=== PATIENT | female | born 1980 | race Caucasian/White ===

== ENCOUNTER → 2019-01-25 | Outpatient (CLI) | payer OTHER, SELFPAY ==
[2019-01-25 15:36] LABS: Absolute Lymphocyte Count 1.43 X10^3/uL (0.83-4.51); Absolute Neutrophil Count 3.2 X10^3/uL (2.0-7.7); Basophil# 0.04 X10^3/uL; Basophil% 0.8 % (0-1); Eosinophil# 0.09 X10^3/uL; Eosinophils% 1.7 % (0-5); Hemoglobin 14.9 g/dL (12.0-15.0); Lymphocyte # 1.43 X10^3/ul (4.0); Lymphocyte % 27.2 % (19-41); Mean Corp Hgb Conc 34.7 g/dL (32-36); Mean Corpuscular Hgb 31.3 pg (27.0-32.0); Mean Corpuscular Volume 90.3 fL (81-99); Mean Platelet Vol. 10.9 fl (6.2-12.0); Monocyte# 0.51 X10^3/uL; Monocyte% 9.7 % (0-10); NRBC Flagged by Analyzer 0 % (0-5); Neutrophil # 3.17 X10^3/uL (2.7-7.7); Neutrophil % 60.2 % (47-70); Platelet Count 225 K/mm3 (150-450); RBC Distribution Width CV 12.9 % (11.6-14.6); RBC Distribution Width SD 42.3 fl (35.1-43.9); Red Blood Count 4.76 M/mm3 (4.2-5.4); White Blood Count 5.3 K/mm3 (4.4-11.0)
[2019-01-25 15:54] LABS: Erythrocyte Sedimentation Rate 19 mm/hr (0-20)
[2019-01-25 16:10] LABS: Vitamin B12 319 pg/mL (211-911); Vitamin D,25 Hydroxy 9.2 ng/mL (29.95-100.01)
[2019-01-25 16:14] LABS: ALB/GLOB Ratio 0.9 RATIO (0.9-2.4); AST(SGOT) 16 U/L (15-37); Alanine Aminotransfer ALT/SGPT 28 U/L (13-56); Albumin, Serum 3.7 g/dL (3.2-5.0); Alkaline Phosphatase 56 U/L (45-117); Anion Gap 10 (5-15); BUN 14 mg/dL (7-18); BUN/Creat Ratio 15.5 RATIO (10-20); Calcium,Total 9.1 mg/dL (8.5-10.1); Chloride 107 mmol/L (98-107); Cholesterol 201 mg/dL (200); EST Glomerular Filtration Rate 74 mL/min (>60); Est Glom Filt Rate - Afr Amer 90 mL/min (>60); Free T3 3.1 pg/mL (2.18-3.98); Globulin 3.9 g/dL (2.2-4.2); Glucose 83 mg/dL (74-106); High Density Lipoprotein 108 mg/dL; Iron 114 ug/dL (50-170); Potassium 3.9 mmol/L (3.5-5.1); Protein, Total 7.6 g/dL (6.4-8.2); Sodium Level 140 mmol/L (136-145); T3 Uptake 34 % (30-39); T4 Free Direct 0.93 ng/dL (0.76-1.46); Thyroid Stim Hormone (TSH) 1.65 uIU/mL (0.358-3.74); Triglycerides 81 mg/dL; Very Low Density Lipoprotein 16 mg/dL (5-40)
[2019-01-30 13:56] LABS: Anti-Thyroglobulin AB < 1.0 IU/mL (0.0-0.9); Thyroglobulin, Serum Qt. 18.6 ng/mL (1.5-38.5)
== END | disposition home or self-care (01) ==
PROVIDERS: Family Provider Family Medicine; PCP Family Medicine; Referring Provider Family Medicine; Visit Provider Family Medicine
DX: R53.83 Other fatigue (principal); Z13.220 Encounter for screening for lipoid disorders
CPT/HCPCS: 36415; 80053; 80061; 82306; 82607; 83540; 84432; 84439; 84443; 84479; 84481; 85025; 85652; 86800

== ENCOUNTER → 2019-02-06 | Outpatient (CLI) | payer OTHER, SELFPAY ==
--- NOTE | 2019-02-05 | LES_PTH ---
PATIENT: ANNA GOMEZ LOC: [facility] U#:[id number] AGE/SX: 38/F ROOM: RE02/06/[address]: Dr. Jonathan Valente MD : 1980 BED: DIS: 02/06/2019 SPEC #: [id number] RECD: 02/05/19 18:02 STATUS: NISHANT DAVIS #: [id number] SURAJ: 02/05/19 00:[address]: Jonathan Valente DEPT: SURGICAL PATHOLOGY RECD BY: Cecilio Minor Tissues: Skin of neck, NOS Procedures: Surgery Specimen Level IV HEADER OPERATION: Left neck shave biopsy PRE-OP DIAGNOSIS: Atypical nevus TISSUE SUBMITTED: Left neck shave biopsy MICROSCOPIC DIAGNOSIS Left neck lesion, shave biopsy: Polypoid compound nevus with predominantly intradermal component. See comment. MAIKEL:gilamr 02/07/19 COMMENT The lesion is present at the deep margin of the specimen. Clinical correlation and appropriate follow up are necessary. MICROSCOPIC DESCRIPTION Slides are reviewed. GROSS DESCRIPTION Received in fixative is one container labeled with the patient's name and designated left neck. The specimen consists of a piece of pratt-brown skin measuring 0.7 x 0.7 x 0.4 cm. The specimen is inked and submitted entirely in one cassette. It will be bisected at the time of embedding. / SJ:rg 02/06/19 TC:1 CPT: 46005
== END | disposition home or self-care (01) ==
LOC: LABSPEC 09:11
PROVIDERS: Family Provider Family Medicine; PCP Family Medicine; Referring Provider Family Medicine; Visit Provider Family Medicine
DX: D22.4 Melanocytic nevi of scalp and neck (principal)
CPT/HCPCS: 88305

== ENCOUNTER → 2019-03-16 | Outpatient (CLI) | payer OTHER, SELFPAY ==
[2019-03-20 11:03] LABS: V-Zoster IgG (Immunity) 733 index (Immune >165); V-Zoster Virus Acute IgM < 0.91 index (0.00-0.90)
== END | disposition home or self-care (01) ==
LOC: MFPLAB 12:01
PROVIDERS: Family Provider Family Medicine; PCP Family Medicine; Referring Provider Family Medicine; Visit Provider Family Medicine
DX: R21 Rash and other nonspecific skin eruption (principal)
CPT/HCPCS: 36415; 86787

== ENCOUNTER 2019-07-07 13:33 | Emergency (ER) | payer OTHER, SELFPAY ==
[2019-07-07 13:34] VITALS: BP 160/129; PULSE 103; RESP 20; TEMP 36.4; O2SAT 98; BMI 37.9
--- NOTE | 2019-07-07 14:06 | EKG12_ITS ---
Test Reason : HTN Blood Pressure : / mmHG Vent. Rate : 091 BPM Atrial Rate : 091 BPM P-R Int : 164 ms QRS Dur : 072 ms QT Int : 348 ms P-R-T Axes : 047 002 036 degrees QTc Int : 428 ms Normal sinus rhythm Anteroseptal infarct , age undetermined Abnormal ECG Confirmed by JHON JAIN, ALFA ([id number]), loan expeditor MARCO MILLER ([id number]) on 07/10/2019 8:46:14 AM Referred By: ARI Confirmed By:ALFA FERREIRA MD
--- NOTE | 2019-07-07 14:07 | ED.VISSUMM ---
- ER Visit Summary Date of Service: 07/07/19 Chief Complaint: High blood pressure History of Present Illness: The patient is a 38 F who presents with high blood pressure. She was at [facility] today when they took her blood pressure and it was 170/120. She has no personal history of high blood pressure. She does have a family history of high blood pressure. She denies any headache, visual changes, chest pain or shortness of breath. She does have a mild sore throat for 2 days. She states that her blood pressures are normally 120/80. At times it does go high when she is at a doctor's office because she has some anxiety. Physical Examination: Vital signs reviewed. HEENT exam unremarkable. Heart is regular rate and rhythm without murmurs. Lungs are clear to auscultation. Abdomen is soft and nontender. Extremities reveal no edema. Peripheral pulses are equal. Skin exam normal. Neurologic exam normal. Test Results: EKG is sinus rhythm with no ST changes Emergency Department Course and Treatment: Patient's blood pressure went up to 199/102 at 1500. She will be treated with 0.1 mg of clonidine. I am hesitant to put her on a daily medication as this is her first instance of elevated blood pressure readings. She is going to call her doctor on Tuesday for repeat blood pressure check and at that time they may want to start antihypertensives. Treatment Plan: [] Disposition: Discharge Impression: Elevated blood pressure This note was generated with [employer] dictation software. It may contain incorrect words, spelling, and punctuation that were not noted in review of the chart prior to signing ED Disposition - Plan for ED Patient: Referrals: Eleazar Valente MD [Primary Care Provider] -
--- NOTE | 2019-07-07 15:12 | ED.DEP ---
ED Disposition - Plan for ED Patient: Disposition: Home or Assisted Living Instructions: HYPERTENSION, To Be Confirmed Referrals: Eleazar Valente MD [Primary Care Provider] -
[2019-07-07] MEDS: cloNIDine HCl 0.1 MG Tablet PO (15:27)
== END 2019-07-07 15:31 | disposition home or self-care (01) ==
PROVIDERS: Emergency Provider Emergency Medicine; Family Provider Family Medicine; PCP Family Medicine
DX: R03.0 Elevated blood-pressure reading, without diagnosis of hypertension (principal); Z72.0 Tobacco use
CPT/HCPCS: 93005; 99283

== ENCOUNTER → 2020-07-21 14:38 | Outpatient (CLI) | payer OTHER, SELFPAY ==
[2019-08-29 12:20] VITALS: BMI 37.9
[2020-07-21 18:36] LABS: Vitamin D,25 Hydroxy 24.6 ng/mL
[2020-07-21 18:38] LABS: BUN 14 mg/dL (7-18); Creatinine, Serum 0.96 mg/dL (0.55-1.02); EST Glomerular Filtration Rate 69 mL/min (>60); Glucose 87 mg/dL (74-106)
[2020-07-21 18:39] LABS: Anion Gap 6 (5-15); BUN/Creat Ratio 14.6 RATIO (10-20); Calcium,Total 9.2 mg/dL (8.5-10.1); Chloride 107 mmol/L (98-107); Cholesterol 191 mg/dL (200); Est Glom Filt Rate - Afr Amer 83 mL/min (>60); High Density Lipoprotein 114 mg/dL; Potassium 4.3 mmol/L (3.5-5.1); Sodium Level 139 mmol/L (136-145); Triglycerides 46 mg/dL; Very Low Density Lipoprotein 9 mg/dL (5-40)
== END ==
LOC: MFPLAB 14:39
PROVIDERS: PCP Family Medicine; Visit Provider Family Medicine
DX: I10 Essential (primary) hypertension (principal); E55.9 Vitamin D deficiency, unspecified
CPT/HCPCS: 36415; 80048; 80061; 82306

== ENCOUNTER 2021-09-27 00:15 | Inpatient (IN) | payer OTHER, SELFPAY ==
[2021-09-26 23:44] VITALS: TEMP 37.3
[2021-09-26 23:45] VITALS: BP 188/100; PULSE 84; O2SAT 99
[2021-09-26 23:50] VITALS: PULSE 75; O2SAT 99
[2021-09-26 23:55] VITALS: PULSE 86; O2SAT 98
[2021-09-26 23:57] VITALS: BMI 44.4
[2021-09-27] VITALS (103 sets, daily range): BP systolic 92–193; BP diastolic 50–106; PULSE 72–101; RESP 14–18; TEMP 36.6–37.6; O2SAT 92–99
[2021-09-27] MEDS: hydrALAZINE 20 MG/ML Vial 5 MG IV (00:23)
[2021-09-27 00:26] LABS: Hematocrit 33.2 % (37-47); Hemoglobin 11.3 g/dL (12.0-15.0); Mean Corpuscular Volume 88.1 fL (81-99); Mean Platelet Vol. 11.2 fl (6.2-12.0); Platelet Count 206 K/mm3 (150-450); RBC Distribution Width CV 13.5 % (11.6-14.6); RBC Distribution Width SD 43.5 fl (35.1-43.9); Red Blood Count 3.77 M/mm3 (4.2-5.4); White Blood Count 6.5 K/mm3 (4.4-11.0)
[2021-09-27] MEDS: Magnesium Sulfate 4gm/100mL 4 GM/100 ML IV.SOLN. IV (00:26)
[2021-09-27 00:44] LABS: AST(SGOT) 18 U/L (15-37); Alanine Aminotransfer ALT/SGPT 24 U/L (13-56); Creatinine, Serum 0.62 mg/dL (0.55-1.02); EST Glomerular Filtration Rate 114 mL/min (>60); Est Glom Filt Rate - Afr Amer 138 mL/min (>60); Estimated Creatinine Clearance 109.62 ml/min; Uric Acid 5.3 mg/dL (2.6-6.0)
[2021-09-27] MEDS: hydrALAZINE 20 MG/ML Vial 10 MG IV (00:48)
[2021-09-27 00:51] LABS: Protein, Urine (Random) < 6.0 mg/dL (<11.9)
[2021-09-27] MEDS: Lactated Ringers 1,000 ML 15 ML IV (00:51)
[2021-09-27] MEDS: Betamethasone/Betamethasone 30 MG/5 ML Vial 12 MG IM (00:52)
[2021-09-27] MEDS: Magnesium Sulfate 4gm/100mL 2 GM/50 ML IV.SOLN. IV (00:54)
[2021-09-27] MEDS: Magnesium Sulfate 20 GM/500 ML BAG IV ×3 (01:02→23:29)
[2021-09-27] MEDS: Labetalol (Compound) 20 MG/4 ML SYRINGE IV (01:14)
[2021-09-27] MEDS: 0.9% Saline Lock 10 ML Syringe IV (01:15)
[2021-09-27] MEDS: Labetalol 200 MG Tablet 300 MG PO ×3 (01:51→23:11)
[2021-09-27 03:14] LABS: Prothrombin Time (Protime)PT. 12.3 SECONDS (11.7-14.9)
[2021-09-27 03:15] LABS: Partial Thromboplast Time 25.1 Seconds (24.1-36.2)
[2021-09-27 03:19] LABS: Fibrinogen 628 mg/dl (203-444)
[2021-09-27] MEDS: Acetaminophen 500 MG Tablet 1000 MG PO ×3 (06:17→18:27)
[2021-09-27] MEDS: Sodium Citrate/Citric Acid 30 ML UDC PO (06:59)
--- NOTE | 2021-09-27 07:20 | PCM.HP.OB ---
HPI - General General Date of Admission: 09/27/21 HPI Narrative ANNA GOMEZ, is a 40 F @ 35.4 weeks who presents with elevated BP. pt is CHTN on labetalol 200mg BID - checked blood pressures at home and reports 160s/90s after taking medication. pt denies DONNELLY, visual change or epigastric pain. Maternal Data Information Final CRISTIANA: 10/27/21 Final CRISTIANA Source: US <20 weeks Gestational age: 35.4 PFSH PFSH Medical History (Updated 09/27/21 @ 07:[address] Gina Shahid MD) Anxiety Asthma Chronic neck and back pain Depression Hay fever HTN (hypertension) Infertility Knee pain Pre-eclampsia SOB (shortness of breath) Home Medications aspirin 81 mg PO DAILY 09/26/21 [History Last Taken Unknown] ferrous sulfate [iron] 325 mg PO DAILY 09/26/21 [History Last Taken Unknown] labetalol 200 mg PO BID 09/26/21 [History Last Taken 09/26/21 22:00] [id number] [] 1 tab PO DAILY 09/26/21 [History Last Taken Unknown] Allergy/AdvReac Type Severity Reaction Status Date / Time banana Allergy Unknown Verified 08/29/19 11:56 Penicillins Allergy Unknown Verified 08/29/19 11:56 Family History (Updated 08/29/19 @ 11:58 by [place] Courtney) Unknown Hypertension Surgical History (Updated 09/27/21 @ 00:35 by Maria Alejandra Coffey) History of gynecologic surgery Social History (Updated 08/29/19 @ 12:29 by Garfield GASTON, MARILIN) Smoking Status: Never smoker alcohol intake: current alcohol intake frequency: a few times a month History Elective abortions Hx Para 0 Spontaneous abortions Hx # Term Pregnancies Ectopic pregnancies Hx # Pregnancies Multiple births # of living children NST FHR Rate Baby A Baseline: 130 Variability:: Moderate Accelerations:: 15 x 15 Decelerations:: None NST Reactive:: Yes FHR Category:: Category I Uterine Activity:: none Vital Signs Vital Signs Vital Signs: 09/26/21 23:44 09/26/21 23:45 09/26/21 23:50 Temperature 99.1 F Temperature Source Temporal Pulse Rate 84 75 Respiratory Rate Respiratory Effort Respiratory Depth Respiratory Pattern Blood Pressure 188/100 H Blood Pressure Mean BP Systolic 188 BP Diastolic 100 Blood Pressure Source Blood Pressure Position Blood Pressure Location Pulse Ox 99 99 Oxygen Delivery Method 09/26/21 23:55 09/27/21 00:00 09/27/21 00:03 Temperature Temperature Source Pulse Rate 86 85 80 Respiratory Rate Respiratory Effort Respiratory Depth Respiratory Pattern Blood Pressure 173/99 H Blood Pressure Mean BP Systolic 173 BP Diastolic 99 Blood Pressure Source Blood Pressure Position Blood Pressure Location Pulse Ox 98 98 Oxygen Delivery Method 09/27/21 00:05 09/27/21 00:10 09/27/21 00:15 Temperature Temperature Source Pulse Rate 81 86 83 Respiratory Rate Respiratory Effort Respiratory Depth Respiratory Pattern Blood Pressure Blood Pressure Mean BP Systolic BP Diastolic Blood Pressure Source Blood Pressure Position Blood Pressure Location Pulse Ox 98 99 98 Oxygen Delivery Method 09/27/21 00:23 09/27/21 00:29 09/27/21 00:34 Temperature Temperature Source Pulse Rate 83 90 89 Respiratory Rate Respiratory Effort Respiratory Depth Respiratory Pattern Blood Pressure 193/106 H Blood Pressure Mean BP Systolic BP Diastolic Blood Pressure Source Blood Pressure Position Blood Pressure Location Pulse Ox 99 99 Oxygen Delivery Method 09/27/21 00:39 09/27/21 00:40 09/27/21 00:42 Temperature 98.3 F 98.5 F Temperature Source Temporal Temporal Pulse Rate 93 92 85 Respiratory Rate 16 16 Respiratory Effort Normal Respiratory Depth Normal Respiratory Pattern Normal Blood Pressure 163/84 H 163/87 H Blood Pressure Mean 110 112 BP Systolic 163 BP Diastolic 84 Blood Pressure Source Monitor Monitor Blood Pressure Position Semi-Fowlers Semi-Fowlers Blood Pressure Location Right Arm Right Arm Pulse Ox 97 98 98 Oxygen Delivery Method Room Air Room Air 09/27/21 00:44 09/27/21 00:48 09/27/21 00:49 Temperature Temperature Source Pulse Rate 90 83 91 Respiratory Rate Respiratory Effort Respiratory Depth Respiratory Pattern Blood Pressure 163/84 H Blood Pressure Mean BP Systolic BP Diastolic Blood Pressure Source Blood Pressure Position Blood Pressure Location Pulse Ox 97 98 Oxygen Delivery Method 09/27/21 00:54 09/27/21 00:58 09/27/21 00:59 Temperature Temperature Source Pulse Rate 92 93 95 Respiratory Rate 14 Respiratory Effort Respiratory Depth Respiratory Pattern Blood Pressure Blood Pressure Mean BP Systolic BP Diastolic Blood Pressure Source Blood Pressure Position Blood Pressure Location Pulse Ox 97 98 96 Oxygen Delivery Method Room Air 09/27/21 01:06 09/27/21 01:15 09/27/21 01:20 Temperature Temperature Source Pulse Rate 94 96 101 H Respiratory Rate Respiratory Effort Respiratory Depth Respiratory Pattern Blood Pressure 161/91 H Blood Pressure Mean BP Systolic 161 BP Diastolic 91 Blood Pressure Source Blood Pressure Position Blood Pressure Location Pulse Ox 99 99 Oxygen Delivery Method 09/27/21 01:25 09/27/21 01:30 09/27/21 01:35 Temperature 98.3 F Temperature Source Temporal Pulse Rate 89 91 93 Respiratory Rate 16 Respiratory Effort Normal Respiratory Depth Normal Respiratory Pattern Normal Blood Pressure 127/65 H 131/66 H Blood Pressure Mean 85 BP Systolic 127 131 BP Diastolic 65 66 Blood Pressure Source Monitor Blood Pressure Position Semi-Fowlers Blood Pressure Location Right Arm Pulse Ox 98 99 98 Oxygen Delivery Method Room Air 09/27/21 01:36 09/27/21 01:40 09/27/21 01:45 Temperature Temperature Source Pulse Rate 91 88 89 Respiratory Rate 18 Respiratory Effort Normal Respiratory Depth Normal Respiratory Pattern Normal Blood Pressure 131/66 H 135/63 H Blood Pressure Mean 87 BP Systolic 135 BP Diastolic 63 Blood Pressure Source Monitor Blood Pressure Position Semi-Fowlers Blood Pressure Location Right Arm Pulse Ox 99 99 98 Oxygen Delivery Method Room Air 09/27/21 01:46 09/27/21 01:50 09/27/21 01:55 Temperature Temperature Source Pulse Rate 89 88 90 Respiratory Rate 16 18 Respiratory Effort Respiratory Depth Respiratory Pattern Blood Pressure 135/63 H 125/66 H Blood Pressure Mean 87 85 BP Systolic BP Diastolic Blood Pressure Source Monitor Monitor Blood Pressure Position Semi-Fowlers Sitting Blood Pressure Location Right Arm Right Arm Pulse Ox 98 99 99 Oxygen Delivery Method Room Air Room Air 09/27/21 01:57 09/27/21 02:04 09/27/21 02:05 Temperature Temperature Source Pulse Rate 90 92 87 Respiratory Rate 14 Respiratory Effort Respiratory Depth Respiratory Pattern Blood Pressure 125/66 H 126/58 H Blood Pressure Mean 80 BP Systolic 125 BP Diastolic 66 Blood Pressure Source Monitor Blood Pressure Position Semi-Fowlers Blood Pressure Location Right Arm Pulse Ox 99 98 Oxygen Delivery Method Room Air 09/27/21 02:06 09/27/21 02:09 09/27/21 02:14 Temperature Temperature Source Pulse Rate 87 91 89 Respiratory Rate Respiratory Effort Respiratory Depth Respiratory Pattern Blood Pressure 126/58 H Blood Pressure Mean BP Systolic 126 BP Diastolic 58 Blood Pressure Source Blood Pressure Position Blood Pressure Location Pulse Ox 98 98 Oxygen Delivery Method 09/27/21 02:15 09/27/21 02:19 09/27/21 02:24 Temperature 98.1 F Temperature Source Temporal Pulse Rate 85 91 87 Respiratory Rate 14 Respiratory Effort Respiratory Depth Respiratory Pattern Blood Pressure 123/58 H Blood Pressure Mean 79 BP Systolic 123 BP Diastolic 58 Blood Pressure Source Monitor Blood Pressure Position Semi-Fowlers Blood Pressure Location Right Arm Pulse Ox 98 98 98 Oxygen Delivery Method Room Air 09/27/21 02:29 09/27/21 02:30 09/27/21 02:32 Temperature Temperature Source Pulse Rate 87 86 86 Respiratory Rate 18 Respiratory Effort Normal Respiratory Depth Normal Respiratory Pattern Normal Blood Pressure 112/59 L 112/59 L Blood Pressure Mean 76 BP Systolic 112 BP Diastolic 59 Blood Pressure Source Monitor Blood Pressure Position Semi-Fowlers Blood Pressure Location Right Arm Pulse Ox 97 98 Oxygen Delivery Method Room Air 09/27/21 02:34 09/27/21 02:39 09/27/21 02:45 Temperature Temperature Source Pulse Rate 88 89 90 Respiratory Rate 18 Respiratory Effort Respiratory Depth Respiratory Pattern Blood Pressure 128/57 H Blood Pressure Mean 80 BP Systolic BP Diastolic Blood Pressure Source Monitor Blood Pressure Position Semi-Fowlers Blood Pressure Location Right Arm Pulse Ox 98 97 99 Oxygen Delivery Method Room Air 09/27/21 02:46 09/27/21 02:48 09/27/21 02:51 Temperature Temperature Source Pulse Rate 90 88 88 Respiratory Rate Respiratory Effort Respiratory Depth Respiratory Pattern Blood Pressure 128/57 H Blood Pressure Mean BP Systolic 128 BP Diastolic 57 Blood Pressure Source Blood Pressure Position Blood Pressure Location Pulse Ox 99 98 Oxygen Delivery Method 09/27/21 02:56 09/27/21 03:00 09/27/21 03:01 Temperature Temperature Source Pulse Rate 87 83 92 Respiratory Rate 18 Respiratory Effort Respiratory Depth Respiratory Pattern Blood Pressure 118/58 L Blood Pressure Mean 78 BP Systolic BP Diastolic Blood Pressure Source Monitor Blood Pressure Position Semi-Fowlers Blood Pressure Location Right Arm Pulse Ox 98 98 97 Oxygen Delivery Method Room Air 09/27/21 03:02 09/27/21 03:06 09/27/21 03:11 Temperature Temperature Source Pulse Rate 83 87 87 Respiratory Rate Respiratory Effort Respiratory Depth Respiratory Pattern Blood Pressure 118/58 L Blood Pressure Mean BP Systolic 118 BP Diastolic 58 Blood Pressure Source Blood Pressure Position Blood Pressure Location Pulse Ox 98 98 Oxygen Delivery Method 09/27/21 03:15 09/27/21 03:16 09/27/21 03:17 Temperature Temperature Source Pulse Rate 83 83 Respiratory Rate 18 Respiratory Effort Respiratory Depth Respiratory Pattern Blood Pressure 120/59 L 120/59 L Blood Pressure Mean 79 BP Systolic 120 BP Diastolic 59 Blood Pressure Source Monitor Blood Pressure Position Semi-Fowlers Blood Pressure Location Right Arm Pulse Ox 98 97 Oxygen Delivery Method Room Air 09/27/21 03:21 09/27/21 03:26 09/27/21 03:31 Temperature Temperature Source Pulse Rate 86 86 88 Respiratory Rate Respiratory Effort Respiratory Depth Respiratory Pattern Blood Pressure Blood Pressure Mean BP Systolic BP Diastolic Blood Pressure Source Blood Pressure Position Blood Pressure Location Pulse Ox 98 98 97 Oxygen Delivery Method 09/27/21 03:36 09/27/21 03:41 09/27/21 03:46 Temperature Temperature Source Pulse Rate 87 86 84 Respiratory Rate Respiratory Effort Respiratory Depth Respiratory Pattern Blood Pressure Blood Pressure Mean BP Systolic BP Diastolic Blood Pressure Source Blood Pressure Position Blood Pressure Location Pulse Ox 97 98 98 Oxygen Delivery Method 09/27/21 03:47 09/27/21 03:50 09/27/21 03:51 Temperature 99.0 F 99.0 F Temperature Source Temporal Temporal Pulse Rate 85 85 84 Respiratory Rate 16 Respiratory Effort Normal Respiratory Depth Normal Respiratory Pattern Normal Blood Pressure 119/58 L 119/58 L Blood Pressure Mean 78 BP Systolic 119 BP Diastolic 58 Blood Pressure Source Monitor Blood Pressure Position Semi-Fowlers Blood Pressure Location Right Arm Pulse Ox 99 99 Oxygen Delivery Method Room Air 09/27/21 03:54 09/27/21 03:56 09/27/21 04:01 Temperature Temperature Source Pulse Rate 91 81 82 Respiratory Rate Respiratory Effort Respiratory Depth Respiratory Pattern Blood Pressure Blood Pressure Mean BP Systolic BP Diastolic Blood Pressure Source Blood Pressure Position Blood Pressure Location Pulse Ox 94 99 97 Oxygen Delivery Method 09/27/21 04:06 09/27/21 04:11 09/27/21 04:15 Temperature Temperature Source Pulse Rate 80 85 78 Respiratory Rate 14 Respiratory Effort Respiratory Depth Respiratory Pattern Blood Pressure 114/51 L Blood Pressure Mean 72 BP Systolic BP Diastolic Blood Pressure Source Monitor Blood Pressure Position Left Lateral Blood Pressure Location Right Arm Pulse Ox 96 96 96 Oxygen Delivery Method Room Air 09/27/21 04:16 09/27/21 04:17 09/27/21 04:21 Temperature Temperature Source Pulse Rate 77 84 Respiratory Rate Respiratory Effort Respiratory Depth Respiratory Pattern Blood Pressure 114/51 L Blood Pressure Mean BP Systolic 114 BP Diastolic 51 Blood Pressure Source Blood Pressure Position Blood Pressure Location Pulse Ox 96 97 Oxygen Delivery Method 09/27/21 04:26 09/27/21 04:30 09/27/21 05:14 Temperature 97.9 F Temperature Source Temporal Pulse Rate 82 92 82 Respiratory Rate Respiratory Effort Respiratory Depth Respiratory Pattern Blood Pressure 124/70 H Blood Pressure Mean BP Systolic 124 BP Diastolic 70 Blood Pressure Source Blood Pressure Position Blood Pressure Location Pulse Ox 97 93 97 Oxygen Delivery Method 09/27/21 05:17 09/27/21 06:11 09/27/21 06:12 Temperature 97.9 F 98.1 F Temperature Source Temporal Temporal Pulse Rate 77 81 Respiratory Rate 16 Respiratory Effort Normal Respiratory Depth Normal Respiratory Pattern Normal Blood Pressure 124/70 H 118/62 Blood Pressure Mean 88 BP Systolic 118 BP Diastolic 62 Blood Pressure Source Monitor Blood Pressure Position Semi-Fowlers Blood Pressure Location Right Arm Pulse Ox 98 96 Oxygen Delivery Method Room Air 09/27/21 06:13 09/27/21 06:14 Temperature 98.1 F 98.1 F Temperature Source Temporal Temporal Pulse Rate 83 83 Respiratory Rate 18 16 Respiratory Effort Respiratory Depth Respiratory Pattern Blood Pressure 118/64 118/62 Blood Pressure Mean 82 80 BP Systolic BP Diastolic Blood Pressure Source Monitor Monitor Blood Pressure Position Semi-Fowlers Semi-Fowlers Blood Pressure Location Right Arm Right Arm Pulse Ox 95 98 Oxygen Delivery Method Room Air Room Air Weight Weight: 123.037 kg Body Mass Index (BMI) 44.4 Physical Exam Narrative AdD: soft, gravid, non tender EXT: no clonus, +2 pitting edema Const alert and oriented x3 Labs Labs Labs: Blood Type A POSITIVE Antibody Screen NEGATIVE Hct 33.2 % (37-47) L Hgb 11.3 g/dL (12.0-15.0) L VZV IgG Antibody 733 index (Immune >165) Assessment & Plan (1) Chronic hypertension with superimposed preeclampsia: (2) AMA (advanced maternal age) primigravida 35+: QUALIFIERS: Trimester: third trimester Qualified Code(s): O09.513 - Supervision of elderly primigravida, third trimester (3) Obesity affecting : QUALIFIERS: Trimester: third trimester Qualified Code(s): O99.213 - Obesity complicating , third trimester (4) 35 weeks gestation of : PLAN: Admit to L&D Mont[facility] FHR/TOCO Hydralazine protocol- unresponsive to this- labetalol protocol then initiated Magnesium sulfate- fluid restriction. Monitor VS primary cs- unfavorable cervix (narrow pelvis, closed and thick), Requesting Sterilization Patient was counseled on a primary section including risk benefits and alternatives. Patient was counseled on risk for bleeding infection injury to pelvic structures including bladder bowel and vessels. She understands the risk of delivery at 35 weeks and the infant possibly needing supplemental oxygen or further interventions. Patient and significant other would like to proceed at this time.
--- NOTE | 2021-09-27 07:56 | FALS_PTH ---
PATIENT: ANNA GOMEZ LOC: [facility] U#:[id number] AGE/SX: 40/F ROOM: [facility]013 RE09/27/[address]: Dr. Gina Shahid, MDDOB: 1980 BED: 1 DIS: 09/30/2021 SPEC #: [id number] RECD: 09/27/21 10:50 STATUS: NISHANT BERGERCoco #: [id number] SURAJ: 09/27/21 07:[address]: Gina Shahid DEPT: SURGICAL PATHOLOGY RECD BY: Paris Kemp ENTERED: 09/28/21 08:35 SP TYPE: FALL TUBES OTHR DR: Dr. Jonathan Valente MD Tissues: Fallopian tube Procedures: Surgery Specimen Level II HEADER OPERATION: Tubal ligation PRE-OP DIAGNOSIS: Sterilization TISSUE SUBMITTED: Fallopian tubes, tie on left tube MICROSCOPIC DIAGNOSIS Bilateral fallopian tubes, salpingectomy: Bilateral fallopian tubes, no pathologic diagnosis. MAIKEL:gilmar 09/29/2021 MICROSCOPIC DESCRIPTION Slides are reviewed. GROSS DESCRIPTION Received in fixative is one container labeled with the patient's name and designated bilateral fallopian tubes, tie on left. The specimen consists of bilateral fallopian tubes including fimbrial ends. The right fallopian tube measures 5 cm in length and 0.6 cm in diameter and the left fallopian tube measures 5.5 cm in length and 0.8 cm in diameter. Sections reveal unremarkable cut surfaces. Hematology Technologist sections are submitted in two cassettes as follows: 1 ? right fallopian tube, 2 ? left fallopian tube. / Ari 09/28/2021 TC:4 CPT: 76366 x2
--- NOTE | 2021-09-27 08:30 | OP.PCM_ITS ---
Assessment & Plan (1) Delivery by section: (2) Chronic hypertension with superimposed preeclampsia: Maternal Data Information Final CRISTIANA: 10/27/21 Final CRISTIANA Source: US <20 weeks Gestational age: 35.5 Details Operative Information Date of Procedure: 09/27/21 Pre-Operative Diagnosis: CHTN with superimposed PRE E based on severe range BP, AMA, obesity in , sterilization request, 35 weeks Post-Operative Diagnosis: same, live female , partial abruption Indications for : Desires elective sterilization Indications Narrative: - remote from delivery- unfavorable cervix, CHTN w/ superimposed PRE based on BP Classification: Scheduled Procedure Type: bilateral salpingectomy revenue accountant #1: Ariane Dasilva Type of Anesthesia: Spinal Anesthesiologist: Luis Reyes Antibiotic Given: Ancef 3 grams IV x1 Drain: Leigh to straight drain Estimated Blood Loss: 700 Fluids Replaced: 1000 Procedure Start Time: 07:50 Procedure Stop Time: 08:28 Time of Delivery: 07:56 Findings Description of Procedure: After informed consent was obtained the patient was taken to the operating room she was given spinal anesthesia. sHe was placed in the supine position. She was then prepped and draped in normal sterile fashion. Once spinal anesthesia was found to be adequate skin incision was made with a scalpel in a Pfannenstiel fashion. It was carried down to the underlying layer of the fascia. Fascia was then incised midline with scapel and extended laterally using curved riley. 2 straight Perla's were placed in the superior aspect of the fascial edge and the rectus muscles were dissected off sharply. Attention was then turned to the inferior aspect where again the fascial edge was grasped with 2 straight Perla clamps tented up and the rectus muscle dissected off sharply. Rectus muscles were in the midline bluntly. Using blunt force the peritoneum was then entered. Gentle opposing traction was placed. Rectus muscles and peritoneum were very tight not allowing easy stretch. At this time peritoneum was taken down using the Bovie and the right rectus muscle was using the Bovie. Uterine incision was made in a low transverse fashion with the scalpel and then entered bluntly. Gentle opposing traction was placed to extend the uterine incision. The membranes were ruptured amniotic fluid appeared bloody. 's head was then brought to the uterine incision was delivered atraumatically followed by the rest 's body. At this time delayed cord clamping was performed mouth nose were suctioned. Infant was then handed to the waiting nursery team. The placenta was then removed with gentle traction. The uterus was removed from the intra- abdominal cavity is wrapped in a moist lap. It was cleared of all clots and debris using a moist lap. Ring clamps were placed on the uterine angles. #1 Vicryl suture was used in a running locked fashion for the first layer. Followed by second imbricating layer with #1 Vicryl. Tubes and ovaries were evaluated they were normal. The right tube was grasped in an avascular area with the Silverio. LigaSure was then used to coagulate and ligate along the mesosalpinx to remove the entire right tube. The uterus was then placed back in the intra-abdominal cavity and the left tube was visualized. It was grasped with Babcocks and again the LigaSure was used to coagulate and ligate along the mesosalpinx.. Great hemostasis was appreciated at this time the uterine incision was again evaluated good hemostasis was appreciated. Aparna was placed over the uterine incision the peritoneum was grasped with Kellys. Peritoneum was reapproximated using #2 Vicryl suture in a running fashion. The fascia was then reapproximated using #1 PDS in a running fashion. Rectus muscle was evaluated good hemostasis appreciated. Aparna was placed over the rectus muscle. Subcutaneous layer was evaluated and Bovie was used for any small oozing that was noted. Aparna was placed in the subcu layer. #2-0 plain gut suture was then used to reapproximate the subcutaneous and then interrupted fashion. Next the subcu layer was reapproximated using 4-0 Monocryl. Dry sterile dressing was applied. Instrument lap needle count were correct ?2. Anticipated normal postoperative course for this patient. Presentation: Positive for Vertex Amniotic Membrane Rupture Type: Spontaneous Amniotic Fluid Description: Bloody Placental Delivery Description: Expressed Placenta Disposition: [facility] Cord Vessel Description: 3 Vessels Cord Entanglement: None Cord Gases: ABG and VBG A Gender: Female (1 minute): 9 (5 minute): 9 Delayed Cord Clamping: Yes Complications Risks of Surgery Discussed w/Patient: Bleeding, Anesthesia Risks, Infection, Permanency, Failure Rate of 1 to 2%, Injury to surrounding structure(s) including bowel and bladder and Availability of other non-permanent control options Complications: None
[2021-09-27] MEDS: Oxytocin 30 units/NS 500 ml 30 UNITS/500 ML IV.SOLN 167 UNITS IV (09:00)
[2021-09-27] MEDS: Ketorolac 30 MG/ML Syringe IV ×3 (09:10→21:18)
[2021-09-27 10:49] LABS: Pathology Specimen OB SEE PATHOLOGY REPORT
--- NOTE | 2021-09-27 11:23 | PCM.PN.BLA ---
Progress Note At bedside to check on pt. Feeling well and has no complaints. Pain well controlled. No DONNELLY or vision changes. No N/V post op. Leigh in place. Physical Exam Const alert and no apparent distress General Appearance: comfortable Assessment & Plan Assessment/Plan (1) Delivery by section: PLAN: Routine post op care Pain well controlled (2) Chronic hypertension with superimposed preeclampsia: PLAN: BP's well controlled on Labetalol 300 mg BID Continue mag gtt for 24 hours Labs WNL No pre e symptoms this morning
[2021-09-27] MEDS: Lactated Ringers 1,000 ML 100 ML IV (12:04)
[2021-09-27] MEDS: HYDROmorphone 1 MG/ML Syringe IV ×2 (13:15→21:18)
[2021-09-27] MEDS: Enoxaparin 40 MG/0.4 ML Syringe SC (20:11)
[2021-09-28] VITALS (15 sets, daily range): BP systolic 98–137; BP diastolic 47–70; PULSE 70–80; RESP 14–20; TEMP 36.4–37.5; O2SAT 92–95
[2021-09-28] MEDS: Acetaminophen 500 MG Tablet 1000 MG PO ×4 (00:17→19:42)
[2021-09-28] MEDS: Ketorolac 30 MG/ML Syringe IV (03:08)
[2021-09-28] MEDS: oxyCODONE 5 MG Tablet PO ×3 (04:15→19:42)
[2021-09-28 06:17] LABS: Hematocrit 30.3 % (37-47); Hemoglobin 10.2 g/dL (12.0-15.0); Mean Corp Hgb Conc 33.7 g/dL (32-36); Mean Corpuscular Volume 89.1 fL (81-99); Mean Platelet Vol. 11.4 fl (6.2-12.0); Platelet Count 229 K/mm3 (150-450)
[2021-09-28] MEDS: Ibuprofen 600 MG Tablet PO ×3 (08:32→22:35)
[2021-09-28] MEDS: Senna/Docusate Sodium 1 Tablet PO (08:33)
[2021-09-28] MEDS: Enoxaparin 40 MG/0.4 ML Syringe SC ×2 (10:48→22:35)
[2021-09-28] MEDS: Ferrous Sulfate 325 MG Tablet PO ×2 (10:49→14:17)
[2021-09-28] MEDS: Labetalol 200 MG Tablet 300 MG PO (10:54)
--- NOTE | 2021-09-28 11:58 | PCM.PN.OB ---
Subjective Subjective Pain well controlled. Average lochia. Denies headache or visual changes. Has been up and able to urinate. Objective Data Objective Data Vital Signs: Vital Signs Temp Pulse Resp BP Pulse Ox 99.5 F H 75 15 132/68 H 95 09/28/21 08:00 09/28/21 10:50 09/28/21 08:00 09/28/21 10:50 09/28/21 08:00 Oxygen Delivery Method Room Air Weight: 123.037 kg Body Mass Index (BMI) 44.4 Intake & Output: Intake and Output for Last 24 Hours 09/26/21 09/27/21 09/28/21 23:59 23:59 23:59 Intake Total 3584.25 / 3584.25 1018.33 / 1018.33 Output Total 1375 / 1375 775 / 775 Balance 2209.25 / 2209.25 243.33 / 243.33 Lab / Micro Data Result Diagrams: 09/28/21 06:07 09/27/21 00:05 Labs: Laboratory Results - last 24 hr 09/28/21 06:07: WBC 10.0, RBC 3.40 L, Hgb 10.2 L, Hct 30.3 L, MCV 89.1, MCH 30.0, MCHC 33.7, RDW Std Deviation 46.0 H, RDW Coeff of Alexis 14.0, Plt Count 229, MPV 11.4 Micro: Microbiology 09/27/21 00:25 Nasal Secretion SARS-CoV-2 Antigen (Rapid) - Final Physical Exam Const alert General Appearance: cooperative HEENT normocephalic Resp normal respiratory effort Cardio regular rate GI soft to palpation GI Narrative: soft, moderate distention, fundus firm, appropriately tender. Abdominal bandage clean dry and intact Extremity no calf tenderness General Extremity: edema Skin no wounds Rashes: No rashes noted Psych activity/motor behavior normal Assessment & Plan (1) Delivery by section: (2) Chronic hypertension with superimposed preeclampsia: PLAN: Postoperative day #1 status post primary section. Patient is doing well. Blood pressures are stable. She is off the magnesium. Will adjust labetalol and monitor blood pressures. is bottlefeeding and doing well. Hemoglobin is appropriate for postoperative blood loss.
[2021-09-28] MEDS: 0.9% Saline Lock 10 ML Syringe IV (16:44)
[2021-09-28] MEDS: Labetalol 200 MG Tablet PO (22:34)
[2021-09-29] VITALS (10 sets, daily range): BP systolic 116–150; BP diastolic 60–80; PULSE 66–84; RESP 15–18; TEMP 36.2–37.5; O2SAT 96–98
[2021-09-29] MEDS: oxyCODONE 5 MG Tablet PO ×3 (03:46→21:05)
[2021-09-29] MEDS: Acetaminophen 500 MG Tablet 1000 MG PO ×4 (03:46→20:40)
[2021-09-29] MEDS: Ibuprofen 600 MG Tablet PO ×3 (04:57→19:36)
[2021-09-29] MEDS: Labetalol 200 MG Tablet PO ×2 (09:14→22:45)
[2021-09-29] MEDS: Senna/Docusate Sodium 1 Tablet PO (09:15)
[2021-09-29] MEDS: Enoxaparin 40 MG/0.4 ML Syringe SC ×2 (09:15→22:45)
[2021-09-29] MEDS: Ferrous Sulfate 325 MG Tablet PO (11:02)
--- NOTE | 2021-09-29 13:11 | PCM.PROGNOTE ---
Subjective Subjective pt was seen at bedside, doing well. pt reports good pain control. lochia mild. Tolerating regular diet. Passing flatus. Pt denies DONNELLY, visual changes. Bottle feeding. Objective Data Objective Data Vital Signs: Vital Signs Temp Pulse Resp BP Pulse Ox 99.5 F H 69 18 116/60 97 09/29/21 12:00 09/29/21 12:05 09/29/21 12:00 09/29/21 12:05 09/29/21 12:00 Oxygen Delivery Method Room Air Weight: 123.037 kg Body Mass Index (BMI) 44.4 Intake & Output: Intake and Output for Last 24 Hours 09/27/21 09/28/21 09/29/21 23:59 23:59 23:59 Intake Total 3584.25 / 3584.25 1018.33 / 1018.33 Output Total 1375 / 1375 1875 / 1875 Balance 2209.25 / 2209.25 -856.67 / -856.67 Lab / Micro Data Result Diagrams: 09/28/21 06:07 09/27/21 00:05 Micro: Microbiology 09/27/21 00:25 Nasal Secretion SARS-CoV-2 Antigen (Rapid) - Final Physical Exam Narrative Abd: soft, non distended. dressing dry and intact. LE: +2 pitting edema. no calf tenderness Const alert and oriented x3 Assessment & Plan Assessment/Plan (1) Delivery by section: PLAN: POD#2 , Doing well - CHTN with superimposed pre E based on BP- s/p Magnesium x 24 hrs after delivery Routine care pain mgmt monitor VS ambulation continue labetalol 200mg BID consider Dc Home tomorrow if BP remains stable
[2021-09-29] MEDS: 0.9% Saline Lock 10 ML Syringe IV (21:06)
[2021-09-30] VITALS (14 sets, daily range): BP systolic 120–160; BP diastolic 59–84; PULSE 60–80; RESP 18; TEMP 37.1–37.2; O2SAT 96–98
[2021-09-30] MEDS: Ibuprofen 600 MG Tablet PO ×2 (02:40→09:23)
--- NOTE | 2021-09-30 02:43 | NURSING ---
Unable to give scheduled dose of tylenol as 0200 dose for 09/29 given at 0345.
[2021-09-30] MEDS: Acetaminophen 500 MG Tablet 1000 MG PO ×2 (03:50→09:22)
[2021-09-30] MEDS: oxyCODONE 5 MG Tablet PO ×2 (03:56→10:32)
--- NOTE | 2021-09-30 09:00 | PCM.DC ---
Discharge Instructions Diet Discharge Diet: No restrictions Activity Discharge Activity: May Not Drive and May Shower May resume sexual activity in: 6 weeks Ice area for (Minutes): 15 Weight Bearing Status: Weight bearing as tolerated Lifting Restrictions: Nothing heavier than baby Additional Activity Instructions:: Check blood pressure before medication and 1 hour after medication Call if blood pressure is greater than 160/110 Hold medication if blood pressure is less than 120/80 Dressing / Incision Call your doctor if your incision/area has: Continuous Slow Oozing, Sudden Increased Bleeding, Increased Pain/ Swelling, Increased Redness, Foul Smelling Discharge and Swelling at the incision site Call your doctor if you observe: Fever of 101 or Higher, Coldness, Increased Pain, Numbness or Tingling, Change in Color, Inability to urinate, Inability to have a bowel movement, Using more than 1 pad per hour, Shortness of breath, Dizziness, Fainting spells, Swelling in the ankles, Chest pain, Increased palpitations (irregular heartbeat), Calf discomfort and Uncontrolled pain Suture Line Care: Avoid Pulling/Pushing and Avoid Pinching/Bending Remove Dressing in: 1 week Cleanse incision/area with: Soap & Water Follow Up Care When: 1 week for incision check and blood pressure check 6 week visit Test Results: Test results from this visit will be discussed in further detail at your follow-up appointment, if applicable. Discharge Plan Admission Admit Date/Time: 09/27/21 00:15 Attending Provider: Gina Shahid Primary Care Provider: Eleazar Valente Discharge Orders/Prescriptions Prescriptions: New oxycodone 5 mg tablet 5 mg PO Q6H PRN (Reason: pain) 7 Days Qty: 10 RF: 0 ibuprofen 600 mg tablet 600 mg PO Q6H PRN (Reason: pain) Qty: 30 RF: 0 docusate sodium [Colace] 100 mg capsule 100 mg PO BID Qty: 30 RF: 0 labetalol 300 mg tablet 300 mg PO BID Qty: 30 RF: 0 Continued ferrous sulfate [iron] 325 mg (65 mg iron) Tablet 325 mg PO DAILY RF: 0 [id number] 1 mg Tablet 1 tab PO DAILY RF: 0 Discontinued labetalol 200 mg Tablet 200 mg PO BID RF: 0 aspirin 81 mg Capsule 81 mg PO DAILY RF: 0 Referrals / Follow Up: Eleazar Valente MD [Primary Care Provider] - Disposition Disposition (needs filled in before D/C Order can be placed): Home, Self Care
[2021-09-30] MEDS: Senna/Docusate Sodium 1 Tablet PO (09:23)
[2021-09-30] MEDS: Enoxaparin 40 MG/0.4 ML Syringe SC (09:23)
[2021-09-30] MEDS: Labetalol 200 MG Tablet 300 MG PO (10:23)
--- NOTE | 2021-10-01 11:25 | PCM.DC.SUM ---
Providers Date of Admission: 09/27/21 Primary Care Physician: Dr. Eleazar Valente MD Reason For Visit: PRIMARY C SECTION Diagnosis Discharge Diagnosis (1) Delivery by section: Status: Acute (2) 35 weeks gestation of : Status: Acute Code(s): Z3A.35 - 35 weeks gestation of (3) Obesity affecting : Status: Acute Code(s): O99.210 - Obesity complicating , unspecified trimester Qualifiers: Trimester: third trimester Qualified Code(s): O99.213 - Obesity complicating , third trimester (4) AMA (advanced maternal age) primigravida 35+: Status: Acute Code(s): O09.519 - Supervision of elderly primigravida, unspecified trimester Qualifiers: Trimester: third trimester Qualified Code(s): O09.513 - Supervision of elderly primigravida, third trimester (5) Chronic hypertension with superimposed preeclampsia: Status: Acute Code(s): O11.9 - Pre-existing hypertension with pre-eclampsia, unspecified trimester Medications at Discharge Home Medications ferrous sulfate [iron] 325 mg PO DAILY 09/26/21 [id number] 1 tab PO DAILY 09/26/21 docusate sodium [Colace] 100 mg PO BID #30 cap 09/30/21 ibuprofen 600 mg PO Q6H PRN #30 tab 09/30/21 labetalol 300 mg PO BID #30 tab 09/30/21 oxycodone 5 mg PO Q6H PRN 7 Days #10 tab 09/30/21 Hospital Course Operations section Summary of Care Provided Hospital Course: Patient was admitted at 35 weeks gestation with chronic hypertension and superimposed preeclampsia. She had severe range blood pressures requiring treatment with antihypertensives. She was started on magnesium for seizure prophylaxis. See operative report for details of section. She was on magnesium for 24 hours for seizure prophylaxis. She was started on labetalol for blood pressure management. She was doing well postop and recovering well. She was discharged home with close follow-up in the office and to check blood pressures at home. She was sent home on labetalol 200 mg twice daily. Weight / BMI Weight Weight: 271 lb 4 oz Body Mass Index (BMI) 44.4 ABG / Lab / Microbiology Data Result Diagrams: 09/28/21 06:07 09/27/21 00:05 Microbiology: Microbiology 09/27/21 00:25 Nasal Secretion SARS-CoV-2 Antigen (Rapid) - Final D/C Instructions Discharge Diet: No restrictions May resume sexual activity in: 6 weeks Ice area for (Minutes): 15 Weight Bearing Status: Weight bearing as tolerated Additional Activity Instructions: Check blood pressure before medication and 1 hour after medication Call if blood pressure is greater than 160/110 Hold medication if blood pressure is less than 120/80 Call your doctor if your incision/area has: Continuous Slow Oozing, Sudden Increased Bleeding, Increased Pain/ Swelling, Increased Redness, Foul Smelling Discharge and Swelling at the incision site Call your doctor if you observe: Fever of 101 or Higher, Coldness, Increased Pain, Numbness or Tingling, Change in Color, Inability to urinate, Inability to have a bowel movement, Using more than 1 pad per hour, Shortness of breath, Dizziness, Fainting spells, Swelling in the ankles, Chest pain, Increased palpitations (irregular heartbeat), Calf discomfort and Uncontrolled pain Suture Line Care: Avoid Pulling/Pushing and Avoid Pinching/Bending Cleanse incision/area with: Soap & Water When: 1 week for incision check and blood pressure check 6 week visit Meaningful Use Info Meaningful Use Diagnoses (Choose all that apply): None applicable Discharge Plan Admission Admit Date/Time: 09/27/21 00:15 Attending Provider: Gina Shahid Primary Care Provider: Eleazar Valente Instructions Additional Instructions / Restrictions: Disregard other Labetelol Rx on this page. stating to take Labetelol 200 mg twice daily: 10 AM and 10 PM Discharge Orders/Prescriptions Prescriptions: New oxycodone 5 mg tablet 5 mg PO Q6H PRN (Reason: pain) 7 Days Qty: 10 RF: 0 ibuprofen 600 mg tablet 600 mg PO Q6H PRN (Reason: pain) Qty: 30 RF: 0 docusate sodium [Colace] 100 mg capsule 100 mg PO BID Qty: 30 RF: 0 labetalol 300 mg tablet 300 mg PO BID Qty: 30 RF: 0 Continued ferrous sulfate [iron] 325 mg (65 mg iron) Tablet 325 mg PO DAILY RF: 0 [id number] 1 mg Tablet 1 tab PO DAILY RF: 0 Discontinued labetalol 200 mg Tablet 200 mg PO BID RF: 0 aspirin 81 mg Capsule 81 mg PO DAILY RF: 0 Referrals / Follow Up: Eleazar Valente MD [Primary Care Provider] - Disposition Disposition (needs filled in before D/C Order can be placed): Home, Self Care
== END 2021-09-30 12:00 | disposition home or self-care (01) | DRG 785 ==
LOC: WPOUT 00:16 → WP 00:16
PROVIDERS: Admitting Provider Obstetrics & Gynecology; PCP Family Medicine; Visit Provider Obstetrics & Gynecology
DX: O11.4 Pre-existing hypertension with pre-eclampsia, complicating childbirth (principal); E66.9 Obesity, unspecified; Z79.82 Long term (current) use of aspirin; Z30.2 Encounter for sterilization; Z3A.35 35 weeks gestation of pregnancy; Z37.0 Single live birth; O99.214 Obesity complicating childbirth
CPT/HCPCS: 59025; 59050; 82565; 82570; 84156; 84450; 84460; 84550; 85027; 85384; 85610; 85730; 86850; 86900; 86901; 87426; 88302; 99218; J7120; A4216; G0378; J0702; J2405

== ENCOUNTER → 2025-03-25 | Outpatient (CLI) | payer OTHER, SELFPAY ==
--- NOTE | 2025-03-25 14:04 | RAD_ITS ---
PROCEDURE: KNEE 4 OR MORE VIEWS 03/25/2025 REASON FOR EXAM: L KNEE PAIN TECHNIQUE: Procedure Code: RADKN Modality: DX Procedure: KNEE 4 OR MORE VIEWS COMPARISON: None RAD/Knee 4 or More Views IMPRESSION: No acute fracture or dislocations. No significant degenerative changes. Minimal joint effusion. Mild diffuse soft tissue edema. No radiographic foreign body. Reading Location: [id number]
== END | disposition home or self-care (01) ==
LOC: MTRAD 14:02
PROVIDERS: PCP Family Medicine; Referring Provider Family Medicine; Visit Provider Family Medicine
DX: M25.562 Pain in left knee (principal)
CPT/HCPCS: 73564